=== PATIENT | female | born 1955 | race Caucasian/White ===

== ENCOUNTER 2025-07-28 18:01 | Emergency (ER) | payer OTHER, MEDICAID ==
[~2025-07-28] VITALS: Ht 152.4 cm; Wt 49.9 kg
[2025-07-28] MEDS ORDERED: MULT-594 PO (18:24)
[2025-07-28] MEDS ORDERED: POLY119P17 PO (18:24)
[2025-07-28] MEDS ORDERED: CARV12.52 PO (18:24)
[2025-07-28] MEDS ORDERED: ASCO500C18 PO (18:24)
[2025-07-28] MEDS ORDERED: MELA5TAB20 PO (18:24)
[2025-07-28] MEDS ORDERED: BENZ200C53 PO (18:24)
[2025-07-28] MEDS ORDERED: GUAI-1197 PO (18:24)
[2025-07-28] MEDS ORDERED: ALBUTEROL-BUDESONIDE INH (18:24)
[2025-07-28] MEDS ORDERED: CRAN450T9 PO (18:24)
[2025-07-28] MEDS ORDERED: LORA-259 PO (18:24)
[2025-07-28] MEDS ORDERED: IPRA3AMP23 IH (18:24)
[2025-07-28] MEDS ORDERED: AMLO10TA59 PO (18:24)
[2025-07-28 20:00] LABS: ASPARTATE AMINOTRANSFERASE 28 U/L (15-37); CREATININE 0.7 mg/dL (0.6-1.3); SODIUM SERUM 145 mmol/L (136-145); TOTAL PROTEIN, SERUM 8.0 g/dL (6.4-8.2); UREA NITROGEN, BLOOD 19 mg/dL (7-18)
[2025-07-28 20:19] LABS: PLATELET COUNT (AUTO) 326 K/uL (179-408); RED BLOOD CELL COUNT(AUTO) 4.49 MIL/uL (3.63-4.92); RED CELL DISTRIBUTION WIDTH 13.6 % (12.3-17.7); WHITE BLOOD COUNT (AUTO) 12.2 K/uL (3.8-11.8)
[2025-07-28 20:58] LABS: *BILIRUBIN,URIN NEGATIVE (NEGATIVE); *BLOOD, URINE NEGATIVE (NEGATIVE); *CLARITY,URINE CLEAR (CLEAR); *COLOR,URINE YELLOW (YELLOW); *KETONES,URINE NEGATIVE (NEGATIVE); *PROTEIN,URINE 1+ (NEGATIVE); *UROBILINOGEN,URINE 0.2 E.U./dl (NORMAL); LEUKOCYTE ESTERASE ,URINE NEGATIVE (NEGATIVE); NITRITE, URINE NEGATIVE (NEGATIVE); UGLUCOSE NEGATIVE (NEGATIVE)
[2025-07-28 21:10] LABS: ASPARTATE AMINOTRANSFERASE 33 U/L (15-37); TOTAL PROTEIN, SERUM 8.0 g/dL (6.4-8.2)
[2025-07-28 21:20] LABS: BAND % (MANUAL) 5 % (0-10); NEUTROPHILS % (MANUAL) 49 % (42-75)
[2025-07-28 21:21] LABS: EOSINOPHILS % (MANUAL) 2 % (0-8); LYMPHOCYTES % (MANUAL) 25 % (20-40); MONOCYTES % (MANUAL) 19 % (2-10); PLATELET ESTIMATE ADEQUATE
[2025-07-28 21:22] LABS: *AMPHETAMINE, URINE NEGATIVE (NEGATIVE); *BARBITURATE, URINE NEGATIVE (NEGATIVE); *BENZODIAZEPINE, URINE POSITIVE (NEGATIVE); *CANNABINOID, URINE NEGATIVE (NEGATIVE); *COCCAINE, URINE NEGATIVE (NEGATIVE); *OPIATE, URINE POSITIVE (NEGATIVE); *PHENCYCLIDINE SCREEN,URINE NEGATIVE (NEGATIVE); FENTANYL, URINE NEGATIVE (NEGATIVE)
[2025-07-28 21:29] LABS: SQUAMOUS EPITHELIAL CELL,UR MANY /HPF (NONE SEEN)
[2025-07-28 21:37] VITALS: BP 133/96
[2025-07-29 01:37] VITALS: BP 148/98; TEMP 98; O2SAT 99
== END 2025-07-29 01:38 ==
LOC: ER 18:01
DX: J18.0 Bronchopneumonia, unspecified organism (principal); F31.9 Bipolar disorder, unspecified; F25.1 Schizoaffective disorder, depressive type; F19.10 Other psychoactive substance abuse, uncomplicated; F10.239 Alcohol dependence with withdrawal, unspecified; B95.62 Methicillin resistant Staphylococcus aureus infection as the cause of diseases classified elsewhere; F03.93 Unspecified dementia, unspecified severity, with mood disturbance; R06.02 Shortness of breath; F03.94 Unspecified dementia, unspecified severity, with anxiety; M86.9 Osteomyelitis, unspecified; Z79.899 Other long term (current) drug therapy; Z86.73 Personal history of transient ischemic attack (TIA), and cerebral infarction without residual deficits; Z88.8 Allergy status to other drugs, medicaments and biological substances; Z86.2 Personal history of diseases of the blood and blood-forming organs and certain disorders involving the immune mechanism; Z20.822 Contact with and (suspected) exposure to COVID-19; Y90.9 Presence of alcohol in blood, level not specified
CPT/HCPCS: 99285; 96374; 71045; 87426; 87804 ×2; 80048; 81001; 83880; 85007; 85027; 84145; 85730; 87040 ×2; 87086; 84484; 36415; 93005; 83605; 80299; 80307; 80076 ×2; J0360; 70030-TC; A4606; A4663; C1758